=== PATIENT | female | born 1950 | race Caucasian/White ===

== ENCOUNTER 2022-11-06 14:33 | Inpatient (IN) | payer MEDICARE, OTHER ==
[~2022-11-06] VITALS: Ht 152.4 cm; Wt 85.0 kg
[2022-11-06] VITALS (8 sets, daily range): BP systolic 87–157; BP diastolic 58–120
[2022-11-06] MEDS ORDERED: VANCOMYCIN 1G/D5W 200 ML PIGGYBACK IV ONE (14:45)
[2022-11-06] MEDS ORDERED: PIPERACILLIN SODIUM/TAZOBACTAM 3.375 G in IV DEXTROSE 5% 50 ML IV ONE (14:45)
[2022-11-06] MEDS ORDERED: AZITHROMYCIN IV 500 MG in IV DEXTROSE 5% 250 ML IV ONE (14:45)
[2022-11-06] MEDS ORDERED: IV NORMAL SALINE 1000 ML BAG IV ONE (14:45)
[2022-11-06] MEDS ORDERED: IV NS 1000 ML 2,000 ML IV ONE (14:45)
[2022-11-06] MEDS ORDERED: NOREPINEPHRINE BITARTRATE 4 MG/4 ML VIAL IV ONE ×2 (14:46→23:51)
[2022-11-06 15:11] LABS: HEMATOCRIT 37.8 % (31.2-41.9); MEAN CORPUSCULAR HEMOGLOBIN 30.2 uug (24.7-32.8); MEAN CORPUSCULAR VOLUME 93.1 fL (75.5-95.3); PLATELET COUNT (AUTO) 266 K/uL (179-408)
--- NOTE | 2022-11-06 15:17 | NUR ---
PT IS IN ROOM #2B. DR YIP EVALUATED THE PT.
[2022-11-06] MEDS: NOREPINEPHRINE BITARTRATE 8 MG in IV NORMAL SALINE 242 ML IV PRN ×2 (15:21→17:26)
[2022-11-06 15:33] LABS: CARBON DIOXIDE 24 mmol/L (21-32); CHLORIDE 106 mmol/L (98-107); CREATININE 1.3 mg/dL (0.6-1.3); GLUCOSE 173 mg/dL (74-106); POTASSIUM 3.5 mmol/L (3.5-5.1); UREA NITROGEN, BLOOD 37 mg/dL (7-18)
[2022-11-06] MEDS ORDERED: GABA300C PO (15:44)
[2022-11-06] MEDS ORDERED: NORT10CA PO (15:44)
[2022-11-06] MEDS ORDERED: SIMETHICONE (15:44)
[2022-11-06] MEDS ORDERED: CARB1TAB21 PO (15:44)
[2022-11-06] MEDS ORDERED: vitamin b1 PO (15:44)
[2022-11-06] MEDS ORDERED: ACET325C7 PO (15:44)
[2022-11-06] MEDS ORDERED: IBUP-1953 PO (15:44)
[2022-11-06] MEDS ORDERED: MAGN250T2 PO (15:44)
[2022-11-06] MEDS ORDERED: OXYB-58 PO (15:44)
[2022-11-06] MEDS ORDERED: PIPERACILLIN/TAZOBACTAM/D5W 50 ML IV ONE (15:48)
[2022-11-06] MEDS ORDERED: AZITHROMYCIN 500MG/ D5W 250ML IVPB **ER PYXIS ONLY IV ONE (15:49)
[2022-11-06] MEDS ORDERED: VANCOMYCIN IV 200 ML ONE (15:49)
[2022-11-06 15:50] LABS: ALANINE AMINOTRANSFERASE 26 U/L (14-59); ALKALINE PHOSPHATASE 104 U/L (50-136); ASPARTATE AMINOTRANSFERASE 101 U/L (15-37); BILIRUBIN,DIRECT 0.2 mg/dL (0.0-0.2); BILIRUBIN,TOTAL 0.6 mg/dL (0.2-1.0)
[2022-11-06] MEDS ORDERED: ACETAMINOPHEN 325 MG SUPP RC ONE (16:30)
[2022-11-06] MEDS ORDERED: ACETAMINOPHEN 650 MG SUPP.RECT RC ONE (16:30)
[2022-11-06] MEDS ORDERED: ACETAMINOPHEN 325 MG SUPP ONE (16:42)
[2022-11-06 17:28] LABS: *BLOOD, URINE 2+ (NEGATIVE); *CLARITY,URINE CLOUDY (CLEAR); *COLOR,URINE YELLOW (YELLOW); *KETONES,URINE TRACE (NEGATIVE); LEUKOCYTE ESTERASE ,URINE 3+ (NEGATIVE); NITRITE, URINE NEGATIVE (NEGATIVE); PH,URINE 7.5 (5.0-8.0); UGLUCOSE NEGATIVE (NEGATIVE)
[2022-11-06 17:40] LABS: *BILIRUBIN,URIN 1+ (NEGATIVE)
--- NOTE | 2022-11-06 19:27 | NUR ---
REPORT WAS GIVEN TO FRONT DESK MONITOR. PT WAS TRANSFERED TO CCU ROOM.
[2022-11-06] MEDS ORDERED: ACETAMINOPHEN 650 MG SUPP.RECT RC PRN (21:15)
[2022-11-06] MEDS ORDERED: ONDANSETRON 4 MG/2 ML VIAL IV PRN (21:15)
[2022-11-06] MEDS ORDERED: MORPHINE SULFATE 2 MG/1 ML DISP.SYRIN IV PRN (21:15)
[2022-11-06] MEDS ORDERED: CEFEPIME HCL 1 G VIAL ONE (21:59)
[2022-11-06] MEDS ORDERED: IV DEXTROSE 5%-0.9%NS+20MeqKCL 1,000 ML IV ONE (22:00)
[2022-11-06] MEDS: IV DEXTROSE 5%-0.9%NS+20MeqKCL 1,000 ML IV PRN (22:15)
[2022-11-06] MEDS: CEFEPIME HCL 1 G in IV DEXTROSE 5% 50 ML IV SCH (22:15)
[2022-11-06] MEDS: ENOXAPARIN SODIUM 30 MG/0.3 ML DISP.SYRIN SUBCUT SCH (23:52)
[2022-11-07] VITALS (66 sets, daily range): BP systolic 80–154; BP diastolic 6–116
[2022-11-07 05:08] LABS: HEMATOCRIT 38.1 % (31.2-41.9); MEAN CORPUSCULAR HEMOGLOBIN 29.9 uug (24.7-32.8); MEAN CORPUSCULAR VOLUME 93.5 fL (75.5-95.3); PLATELET COUNT (AUTO) 186 K/uL (179-408)
[2022-11-07 05:41] LABS: BILIRUBIN,TOTAL 0.4 mg/dL (0.2-1.0); CREATININE 0.8 mg/dL (0.6-1.3); MAGNESIUM 2.5 mg/dL (1.8-2.4); POTASSIUM 4.1 mmol/L (3.5-5.1); TOTAL PROTEIN, SERUM 6.1 g/dL (6.4-8.2)
[2022-11-07] MEDS: NOREPINEPHRINE BITARTRATE 8 MG in IV NORMAL SALINE 242 ML IV PRN (06:16)
--- NOTE | 2022-11-07 07:29 | NUR ---
REPORT GIVEN TO ESTEPHANIE PATEL
[2022-11-07] MEDS: PANTOPRAZOLE SODIUM 40 MG VIAL IV SCH (08:22)
[2022-11-07] MEDS: CEFEPIME HCL 1 G in IV DEXTROSE 5% 50 ML IV SCH (08:23)
[2022-11-07] MEDS: REMEDY ESSENTIAL ZINC PASTE 113 GM TOP SCH ×2 (08:52→21:11)
[2022-11-07] MEDS ORDERED: NOREPINEPHRINE BITARTRATE 8 MG in IV NORMAL SALINE 242 ML IV PRN (09:00)
--- NOTE | 2022-11-07 11:29 | NUR ---
WOUND CARE CONSULT: PT PRESENTS WITH IMMOBILITY,SACRAL SCAR AND DISCOLORATION TO LEFT 5TH TOE AND RT GREAT TOE REDNESS, PRESENT ON ADMISSION. DR CARABALLO CALLED FOR DPM CONSULT. DISCUSSED SKIN PROTECTION WITH NURSING STAFF. FIRST STEP LOW AIRLOSS MATTRESS IS ON ORDER. MD IN AGREEMENT WITH PLAN OF CARE.
[2022-11-07] MEDS ORDERED: VANCOMYCIN IV 1,250 MG in IV DEXTROSE 5% 250 ML IV SCH (13:00)
[2022-11-07] MEDS: IV DEXTROSE 5%-0.9%NS+20MeqKCL 1,000 ML IV PRN (14:35)
--- NOTE | 2022-11-07 16:23 | NUR ---
Notified [employer] Repairer Ulises due to cardiovascular technician Tate reporting results of gram negative shorts rods is both blood cultures. 1622 Addendum: 11/08/22 at 0634 by ANGELICA JACOBSON RN End of Shift Summary 2000: Pt recieved in bed , alert and oriented x3. Dayshift RN reports intermittent confusion. Pt reponds appropriately and is able to make her needs known. Pt asked to be changed. Loose Pt face is flushed. 21:00 Stool sent for C-Diff testing. 21:05 Levophed on hold. SBP is greater than 120. Pt was able to maintain her BP throughout the night after the levophed was discontinued. Pt is now on First Step Select mattress. Pt is resting comfortably although she was intermittently confused during the shift. Vital signs stable at close of shift. Report endorsed to day shift RN.
[2022-11-07] MEDS: ENOXAPARIN SODIUM 30 MG/0.3 ML DISP.SYRIN SUBCUT SCH (20:41)
[2022-11-07] MEDS: CEFEPIME HCL 2 G in IV DEXTROSE 5% 100 ML IV SCH (20:42)
[2022-11-08] VITALS (23 sets, daily range): BP systolic 111–165; BP diastolic 54–108
[2022-11-08 06:29] LABS: HEMATOCRIT 33.3 % (31.2-41.9); MEAN CORPUSCULAR HEMOGLOBIN 30.8 uug (24.7-32.8); MEAN CORPUSCULAR VOLUME 91.9 fL (75.5-95.3); PLATELET COUNT (AUTO) 177 K/uL (179-408)
--- NOTE | 2022-11-08 06:34 | NUR ---
End of Shift Summary 1999: Pt recieved in bed , alert and oriented x3. Dayshift RN reports intermittent confusion. Pt reponds appropriately and is able to make her needs known. Pt asked to be changed. Loose Pt face is flushed. 21:00 Stool sent for C-Diff testing. 21:05 Levophed on hold. SBP is greater than 120. Pt was able to maintain her BP throughout the night after the levophed was discontinued. Pt is now on First Step Select mattress. Pt is resting comfortably although she was intermittently confused during the shift. Vital signs stable at close of shift. Report endorsed to day shift RN.
[2022-11-08] MEDS: IV DEXTROSE 5%-0.9%NS+20MeqKCL 1,000 ML IV PRN (06:38)
[2022-11-08 06:46] LABS: CARBON DIOXIDE 28 mmol/L (21-32); CREATININE 0.5 mg/dL (0.6-1.3); GLUCOSE 115 mg/dL (74-106); MAGNESIUM 1.9 mg/dL (1.8-2.4); PHOSPHOROUS 2.9 mg/dL (2.5-4.9); UREA NITROGEN, BLOOD 15 mg/dL (7-18)
[2022-11-08 07:01] LABS: CHLORIDE 107 mmol/L (98-107); POTASSIUM 3.7 mmol/L (3.5-5.1)
--- NOTE | 2022-11-08 08:00 | NUR ---
awake,alert,oriented. speech clear repositioned. no discomfort voiced. family visited. afebrile. bp stable. closely monitor pt.1000- awake. conversant. ice chip given no n/v noted. swallow well.1200.no distress noted. 1400- awake. no problem noted vss.close observation
[2022-11-08] MEDS: CEFEPIME HCL 2 G in IV DEXTROSE 5% 100 ML IV SCH ×2 (09:17→20:50)
[2022-11-08] MEDS: PANTOPRAZOLE SODIUM 40 MG VIAL IV SCH (09:17)
[2022-11-08] MEDS: REMEDY ESSENTIAL ZINC PASTE 113 GM TOP SCH ×2 (09:23→21:23)
[2022-11-08] MEDS ORDERED: METRONIDAZOLE 500 MG/NS 100ML 500 MG in PREMIXED 1 EACH IV SCH (10:00)
[2022-11-08] MEDS: ENOXAPARIN SODIUM 30 MG/0.3 ML DISP.SYRIN SUBCUT SCH (20:51)
[2022-11-08] MEDS ORDERED: CARBIDOPA/LEVODOPA 25-100MG TABLET ONE (21:33)
[2022-11-08] MEDS: CARBIDOPA/LEVODOPA 25-100MG TABLET PO SCH (21:44)
--- NOTE | 2022-11-08 22:00 | NUR ---
TELE status; remains in CCU / hospital convenience.
[2022-11-09] VITALS (20 sets, daily range): BP systolic 104–161; BP diastolic 38–102
[2022-11-09] MEDS: IV DEXTROSE 5%-0.9%NS+20MeqKCL 1,000 ML IV PRN ×2 (00:06→18:16)
[2022-11-09] MEDS: CARBIDOPA/LEVODOPA 25-100MG TABLET PO SCH ×4 (08:56→21:18)
[2022-11-09] MEDS: PANTOPRAZOLE SODIUM 40 MG VIAL IV SCH (08:57)
[2022-11-09] MEDS: CEFEPIME HCL 2 G in IV DEXTROSE 5% 100 ML IV SCH ×2 (08:57→21:17)
[2022-11-09] MEDS: REMEDY ESSENTIAL ZINC PASTE 113 GM TOP SCH ×2 (08:59→21:20)
--- NOTE | 2022-11-09 15:30 | NUR ---
Spoke with Dr Stearns and notified him about patient having a temperature of 102.9 now and that tylenol rectal was given and axilary ice packs for cooling measures were provided. He said that he would order labs and blood cultures
[2022-11-09 16:17] LABS: HEMATOCRIT 31.5 % (31.2-41.9); MEAN CORPUSCULAR HEMOGLOBIN 31.7 uug (24.7-32.8); MEAN CORPUSCULAR VOLUME 91.8 fL (75.5-95.3); PLATELET COUNT (AUTO) 196 K/uL (179-408)
[2022-11-09 16:20] LABS: ALANINE AMINOTRANSFERASE 17 U/L (14-59); ALKALINE PHOSPHATASE 93 U/L (50-136); ASPARTATE AMINOTRANSFERASE 32 U/L (15-37); BILIRUBIN,TOTAL 0.3 mg/dL (0.2-1.0); CARBON DIOXIDE 26 mmol/L (21-32); CHLORIDE 106 mmol/L (98-107); CREATININE 0.5 mg/dL (0.6-1.3); GLUCOSE 140 mg/dL (74-106); MAGNESIUM 1.8 mg/dL (1.8-2.4); PHOSPHOROUS 2.1 mg/dL (2.5-4.9); POTASSIUM 4.1 mmol/L (3.5-5.1); TOTAL PROTEIN, SERUM 6.4 g/dL (6.4-8.2); UREA NITROGEN, BLOOD 14 mg/dL (7-18)
[2022-11-09] MEDS: GLUCERNA SHAKE 237 ML CAN PO SCH (16:54)
[2022-11-09] MEDS ORDERED: SWABABLE VALVE TRANSFER SET EA MC ONE (17:14)
[2022-11-09] MEDS ORDERED: IOHEXOL 300MG/ML 100 ML INFUS..BTL ONE (17:14)
[2022-11-09] MEDS ORDERED: IV NORMAL SALINE 250 ML IV ONE (17:14)
--- NOTE | 2022-11-09 17:39 | NUR ---
waiting for Contrast consent form to be signed, RN TO call Radiology when ready.
--- NOTE | 2022-11-09 18:25 | NUR ---
Went to CCU, RN needs RN Metal Weigher before coming to [place]. RN Call Radiology when ready.
--- NOTE | 2022-11-09 20:30 | NUR ---
Pt is noted in bed shaking as report is received from RN that MD is aware and Pt has just came from [place] as ordered, responsive but forgetful with call light in reach and fall precautions in place . Sinus Rhythm on the Tele , Diminished Lungs sound with 02 2Liters Nasal Cannula , skin dry, warm and intact . Pt noted with Pemberton Cath , Right Upper Midline with IVF and Antibiotic therapy in progress. Pt care continue as awaits CT results.
[2022-11-09] MEDS: ENOXAPARIN SODIUM 30 MG/0.3 ML DISP.SYRIN SUBCUT SCH (21:19)
--- NOTE | 2022-11-09 21:45 | NUR ---
Pt care continue as CLINICAL PSYCHOLOGIST [facility] Aza noted rounding on Pt .
[2022-11-10] VITALS (12 sets, daily range): BP systolic 120–168; BP diastolic 60–103
--- NOTE | 2022-11-10 00:20 | NUR ---
Pt remain Full code , Sinus Rhythm on the Tele Monitor, 02 Liters Nasal Canula as she is been turn and reposition Q2HRS for comfort. Pt care continue with IVF therapy in progress as Blood Pressure is been monitor closely.
--- NOTE | 2022-11-10 05:00 | NUR ---
Pt is resting as AM care is done and she is monitor closely for any S/S off distress with call light in reach and fall precaution in place with Pemberton cath and Right Upper PICC Line in place.
--- NOTE | 2022-11-10 07:23 | NUR ---
Pt care continue as report is given to the AM receiving nurse.
--- NOTE | 2022-11-10 08:45 | NUR ---
RECEIVED REPORT FROM ESTEPHANIE CUNNINGHAM, FROM CCU. PATIENT IS ALERT & ORIENTED X1-2, AND SPEAKS [place]. VITAL SIGNS STABLE. PATIENT BEDREST. DONALDSON CATHETER PATIENT AND DRAINING. BED BATH GIVEN. BELONGINGS ACCOUNTED FOR. PATIENT SETTLED. NO ACUTE DISTRESS NOTED. PLAN OF CARE CONTINUES.
[2022-11-10] MEDS: PANTOPRAZOLE SODIUM 40 MG VIAL IV SCH (09:53)
[2022-11-10] MEDS: CARBIDOPA/LEVODOPA 25-100MG TABLET PO SCH ×4 (09:53→20:00)
[2022-11-10] MEDS: GLUCERNA SHAKE 237 ML CAN PO SCH ×3 (09:53→16:38)
[2022-11-10] MEDS: CEFEPIME HCL 2 G in IV DEXTROSE 5% 100 ML IV SCH ×2 (09:53→20:00)
[2022-11-10] MEDS: REMEDY ESSENTIAL ZINC PASTE 113 GM TOP SCH ×2 (09:54→20:09)
[2022-11-10 10:18] LABS: HEMATOCRIT 32.9 % (31.2-41.9); MEAN CORPUSCULAR HEMOGLOBIN 30.7 uug (24.7-32.8); MEAN CORPUSCULAR VOLUME 91.5 fL (75.5-95.3); PLATELET COUNT (AUTO) 197 K/uL (179-408)
[2022-11-10 10:32] LABS: CARBON DIOXIDE 27 mmol/L (21-32); CHLORIDE 108 mmol/L (98-107); CREATININE 0.4 mg/dL (0.6-1.3); GLUCOSE 121 mg/dL (74-106); PHOSPHOROUS 2.9 mg/dL (2.5-4.9); POTASSIUM 3.3 mmol/L (3.5-5.1); UREA NITROGEN, BLOOD 8 mg/dL (7-18)
[2022-11-10] MEDS: IV DEXTROSE 5%-0.9%NS+20MeqKCL 1,000 ML IV PRN (16:31)
[2022-11-10] MEDS: ENOXAPARIN SODIUM 30 MG/0.3 ML DISP.SYRIN SUBCUT SCH (20:00)
--- NOTE | 2022-11-10 21:43 | NUR ---
PATIENT IS ALERT & ORIENTED X1-2, AND SPEAKS [place]. VITAL SIGNS STABLE. PATIENT REPOSITIONED PER POLICY. PATIENT FAMILY VISITED AND UPDATED ON CARE. DONALDSON CATHETER PATENT AND DRAINING. NO ACUTE DISTRESS NOTED. FALL PRECAUTIONS IN PLACE. CALL LIGHT WITHIN REACH. ENDORSED CARE TO NOC SHIFT RN FOR CONTINUATION OF CARE.
--- NOTE | 2022-11-11 00:34 | NUR ---
NSG: Received patient lying in bed. no s/s of pain or discomfort at this time. assisted with adl's. call light w/in reach,
--- NOTE | 2022-11-11 02:00 | NUR ---
NSG: Pt is resting comfortably. no c/o pain or discomfort at this time. adl's. provided as needed. pt is on tele which showing sinus Rhythm HR 70-80. call light in reach and fall precaution in place, Pemberton cath draining yellow urine. Right Upper midline in place. call light w/in reach.
[2022-11-11 05:45] VITALS: BP 145/65
--- NOTE | 2022-11-11 06:37 | NUR ---
nsg: Remain calm and cooperative. assisted with adl's. on tele SR with hr 70-80. assisted with adl's. call light w/in reach.
[2022-11-11 07:59] LABS: HEMATOCRIT 32.6 % (31.2-41.9); MEAN CORPUSCULAR HEMOGLOBIN 30.9 uug (24.7-32.8); MEAN CORPUSCULAR VOLUME 90.7 fL (75.5-95.3); PLATELET COUNT (AUTO) 206 K/uL (179-408)
[2022-11-11] MEDS: GLUCERNA SHAKE 237 ML CAN PO SCH ×3 (08:00→16:43)
--- NOTE | 2022-11-11 08:00 | NUR ---
Pt denies any c/o pain. Pt on 2 lit via n/c. Pt forgetful at time. Implement frequent turn q 2 hrs. Pt is in no acute distress. Call light is within reach. Tele SNR @ 70's - 80's. No ectopy noted.
[2022-11-11 08:18] LABS: CARBON DIOXIDE 28 mmol/L (21-32); CHLORIDE 109 mmol/L (98-107); CREATININE 0.4 mg/dL (0.6-1.3); GLUCOSE 108 mg/dL (74-106); MAGNESIUM 1.9 mg/dL (1.8-2.4); PHOSPHOROUS 2.9 mg/dL (2.5-4.9); POTASSIUM 3.4 mmol/L (3.5-5.1); UREA NITROGEN, BLOOD 7 mg/dL (7-18)
[2022-11-11] MEDS: PANTOPRAZOLE SODIUM 40 MG VIAL IV SCH (08:44)
[2022-11-11] MEDS: CARBIDOPA/LEVODOPA 25-100MG TABLET PO SCH ×4 (08:44→20:52)
[2022-11-11] MEDS: CEFEPIME HCL 2 G in IV DEXTROSE 5% 100 ML IV SCH ×2 (08:44→20:52)
[2022-11-11] MEDS: REMEDY ESSENTIAL ZINC PASTE 113 GM TOP SCH ×2 (08:45→20:54)
[2022-11-11 11:37] VITALS: BP 132/92
[2022-11-11] MEDS ORDERED: POTASSIUM CHLORIDE 50 ML IV SCH (12:30)
[2022-11-11] MEDS: IV DEXTROSE 5%-0.9%NS+20MeqKCL 1,000 ML IV PRN (12:37)
--- NOTE | 2022-11-11 18:31 | NUR ---
Pt is in no acute distress. Daughter Mary here to see pt states that pt is still not at baseline. Per daughter pt is confused and at times delusional ie pt talking about slime and her visited here at bedside (per daughter 5 yrs ago) Pt has poor appetite for dinner.
[2022-11-11] MEDS: ENOXAPARIN SODIUM 30 MG/0.3 ML DISP.SYRIN SUBCUT SCH (20:53)
[2022-11-12] VITALS: BP 145/67
[2022-11-12 04:00] VITALS: BP 144/76
[2022-11-12] MEDS: IV DEXTROSE 5%-0.9%NS+20MeqKCL 1,000 ML IV PRN (06:31)
[2022-11-12 06:41] LABS: HEMATOCRIT 31.6 % (31.2-41.9); MEAN CORPUSCULAR HEMOGLOBIN 30.4 uug (24.7-32.8); MEAN CORPUSCULAR VOLUME 90.6 fL (75.5-95.3); PLATELET COUNT (AUTO) 200 K/uL (179-408)
--- NOTE | 2022-11-12 07:12 | NUR ---
REPORT GIVEN TO ESTEPHANIE HOMER
[2022-11-12 07:32] LABS: ALANINE AMINOTRANSFERASE 12 U/L (14-59); ALKALINE PHOSPHATASE 71 U/L (50-136); ASPARTATE AMINOTRANSFERASE 11 U/L (15-37); BILIRUBIN,TOTAL 0.1 mg/dL (0.2-1.0); CARBON DIOXIDE 30 mmol/L (21-32); CHLORIDE 108 mmol/L (98-107); CREATININE 0.4 mg/dL (0.6-1.3); GLUCOSE 110 mg/dL (74-106); MAGNESIUM 1.8 mg/dL (1.8-2.4); PHOSPHOROUS 3.1 mg/dL (2.5-4.9); POTASSIUM 3.2 mmol/L (3.5-5.1); TOTAL PROTEIN, SERUM 5.7 g/dL (6.4-8.2); UREA NITROGEN, BLOOD 7 mg/dL (7-18)
--- NOTE | 2022-11-12 08:00 | NUR ---
Pt arousable to her name. Pt alert x 2 - forgetful. Pt denies any c/o pain. Tele snr 80s. Frequent turn q 2 hrs implemented.
[2022-11-12] MEDS: CARBIDOPA/LEVODOPA 25-100MG TABLET PO SCH ×4 (08:23→20:58)
[2022-11-12] MEDS: REMEDY ESSENTIAL ZINC PASTE 113 GM TOP SCH ×2 (08:24→21:00)
[2022-11-12] MEDS: PANTOPRAZOLE SODIUM 40 MG VIAL IV SCH (08:24)
[2022-11-12] MEDS: GLUCERNA SHAKE 237 ML CAN PO SCH ×3 (08:25→16:30)
[2022-11-12] MEDS: CEFEPIME HCL 2 G in IV DEXTROSE 5% 100 ML IV SCH ×2 (08:28→21:01)
[2022-11-12] MEDS: POTASSIUM CHLORIDE 50 ML IV SCH ×2 (09:41→11:05)
[2022-11-12 11:42] VITALS: BP 119/92
[2022-11-12 15:46] VITALS: BP 119/81
--- NOTE | 2022-11-12 17:42 | NUR ---
PT had a large bm. PT more awake and alert. Pt is in no acute distress. Son at bedside.
[2022-11-12 20:00] VITALS: BP 122/71
[2022-11-12] MEDS: ENOXAPARIN SODIUM 30 MG/0.3 ML DISP.SYRIN SUBCUT SCH (20:58)
[2022-11-13] MEDS ORDERED: IV DEXTROSE 5%-0.9%NS+20MeqKCL 1,000 ML IV ONE (03:32)
[2022-11-13] MEDS: IV DEXTROSE 5%-0.9%NS+20MeqKCL 1,000 ML IV PRN ×2 (03:56→22:42)
[2022-11-13 04:34] VITALS: BP 149/64
[2022-11-13 07:05] LABS: HEMATOCRIT 32.3 % (31.2-41.9); MEAN CORPUSCULAR HEMOGLOBIN 31.2 uug (24.7-32.8); PLATELET COUNT (AUTO) 215 K/uL (179-408)
--- NOTE | 2022-11-13 07:30 | NUR ---
NSG: Received patient lying in bed. no s/s of pain or discomfort at this time. assisted with adl's. call light w/in reach,
[2022-11-13 07:56] LABS: CARBON DIOXIDE 31 mmol/L (21-32); CHLORIDE 106 mmol/L (98-107); CREATININE 0.4 mg/dL (0.6-1.3); GLUCOSE 110 mg/dL (74-106); MAGNESIUM 1.7 mg/dL (1.8-2.4); PHOSPHOROUS 2.7 mg/dL (2.5-4.9); POTASSIUM 3.3 mmol/L (3.5-5.1); UREA NITROGEN, BLOOD 6 mg/dL (7-18)
[2022-11-13] MEDS: REMEDY ESSENTIAL ZINC PASTE 113 GM TOP SCH ×2 (08:03→21:00)
[2022-11-13] MEDS: GLUCERNA SHAKE 237 ML CAN PO SCH ×3 (08:03→16:30)
[2022-11-13] MEDS: CARBIDOPA/LEVODOPA 25-100MG TABLET PO SCH ×4 (08:03→22:36)
[2022-11-13] MEDS: PANTOPRAZOLE SODIUM 40 MG VIAL IV SCH (08:08)
[2022-11-13] MEDS: CEFEPIME HCL 2 G in IV DEXTROSE 5% 100 ML IV SCH ×2 (08:08→21:00)
[2022-11-13] MEDS ORDERED: POTASSIUM CHLORIDE 20 MEQ POWDER PACKET PO ONE (08:45)
[2022-11-13] MEDS: MAGNESIUM SULFATE/D5W 100 ML IV SCH ×2 (09:00→09:51)
--- NOTE | 2022-11-13 10:10 | NUR ---
hand over the pt to rn everett and bedside report given
[2022-11-13 11:43] VITALS: BP 123/62
[2022-11-13 16:00] VITALS: BP 148/94
[2022-11-13 20:44] VITALS: BP 117/81
[2022-11-13] MEDS: ENOXAPARIN SODIUM 30 MG/0.3 ML DISP.SYRIN SUBCUT SCH (22:36)
[2022-11-13] MEDS ORDERED: CEFEPIME HCL 1 G VIAL ONE (23:18)
[2022-11-14 04:00] VITALS: BP 156/73
[2022-11-14] MEDS ORDERED: PANTOPRAZOLE ORAL SUSPENSION 40 MG SUSPDR.PKT PO SCH (07:00)
--- NOTE | 2022-11-14 07:49 | NUR ---
Pt received awake in bed non-verbal but follow commands, Able to swallow medication. HOB kept elevated at all times.f/c to gravity. Pt has a bm with some mucous discharge, no bleeding. RTarm ML patent infusing IVF. Endorse care to incoming nurse
[2022-11-14] MEDS: GLUCERNA SHAKE 237 ML CAN PO SCH ×3 (08:00→16:48)
[2022-11-14] MEDS ORDERED: levoFLOXacin 500 MG TABLET PO SCH (09:00)
[2022-11-14] MEDS: REMEDY ESSENTIAL ZINC PASTE 113 GM TOP SCH (09:00)
[2022-11-14] MEDS: CARBIDOPA/LEVODOPA 25-100MG TABLET PO SCH ×3 (10:24→16:48)
[2022-11-14 11:58] VITALS: BP 114/72
[2022-11-14] MEDS: IV DEXTROSE 5%-0.9%NS+20MeqKCL 1,000 ML IV PRN (14:25)
[2022-11-14] MEDS ORDERED: LEVO500T90 PO (16:06)
[2022-11-14 16:08] VITALS: BP 108/65
--- NOTE | 2022-11-14 18:57 | NUR ---
DISCHARGE: 1) IV Access removed - no bleeding 2) Son informed of ambulance picking patient at the time of this report. 3) Left him a message to continue puree diet at home & [facility] 4) Clinically stable at the time of this report
== END 2022-11-14 19:00 | disposition home health service (06) | DRG 871 ==
LOC: ER 14:33 → CCU 21:06 → TELE3 11-10 09:28 → MEDSURG3 11-12 09:20 → MED 11-13 19:21
PROVIDERS: ADMIT Internal Medicine; ATTEND Internal Medicine
PROC: 05HB33Z Insertion of Infusion Device into Right Basilic Vein, Percutaneous Approach (ICD-10-PCS; principal; 2022-11-07)
DX: A41.59 Other Gram-negative sepsis (principal); G92.8 Other toxic encephalopathy; R65.21 Severe sepsis with septic shock; Z16.29 Resistance to other single specified antibiotic; N13.6 Pyonephrosis; D68.59 Other primary thrombophilia; E44.0 Moderate protein-calorie malnutrition; E87.20 Acidosis, unspecified; B96.4 Proteus (mirabilis) (morganii) as the cause of diseases classified elsewhere; G20 Parkinson's disease; N17.0 Acute kidney failure with tubular necrosis; F02.80 Dementia in other diseases classified elsewhere, unspecified severity, without behavioral disturbance, psychotic disturbance, mood disturbance, and anxiety; N32.81 Overactive bladder; G62.9 Polyneuropathy, unspecified; E66.9 Obesity, unspecified; Z68.36 Body mass index [BMI] 36.0-36.9, adult; R94.8 Abnormal results of function studies of other organs and systems; E83.42 Hypomagnesemia; K59.00 Constipation, unspecified; E87.6 Hypokalemia; R79.89 Other specified abnormal findings of blood chemistry; Z86.12 Personal history of poliomyelitis; Z74.01 Bed confinement status; Z20.822 Contact with and (suspected) exposure to COVID-19; Z88.2 Allergy status to sulfonamides; Z79.899 Other long term (current) drug therapy
CPT/HCPCS: 36415; 70450; 71045; 71260; 83605; 83735; 84100; 84443; 84481; 84484; 85025; 85730; 87040; 93005; 93307; A4663; A6209; C1758; C9113; G0378; J0456; J0692; J1650; J2543; J3370; J3475; J3480; J3490; J7040; J7050; Q9967